=== PATIENT | female | born 1990 | race Caucasian/White ===

== ENCOUNTER → 2017-12-20 | Outpatient (CLI) | payer SELFPAY ==
[~2017-12-20] MED LIST: ALBU90I INH; ALBU90OI INH; AMOX500 PO; CYCL10 PO; DICL75ER PO; HYDACE5 PO; IBUP200 PO; IBUP800 PO; METF500C PO; OMEP40CA12 PO; OXYACE5T PO; PROM25 PO; RXTRAM50 PO; SERT100 PO; TRAM50 PO; Zofran4 MG PO; Zoloft100 MG PO; [UNRECOGNIZED DRUG - OTHER]; [UNRECOGNIZED DRUG - OTHER] PO
== END | disposition home or self-care (01) ==
LOC: LAB EV 10:07
DX: N39.0 Urinary tract infection, site not specified (principal)
CPT/HCPCS: 87086

== ENCOUNTER 2018-02-12 17:40 | Emergency (ER) | payer SELFPAY ==
[~2018-02-12] VITALS: Ht 175.3 cm; Wt 162.8 kg
[2018-02-12] MEDS ORDERED: IBUP800 PO (19:55)
== END 2018-02-12 20:56 | disposition home or self-care (01) ==
LOC: ER 17:40
DX: N76.4 Abscess of vulva (principal); Z79.84 Long term (current) use of oral hypoglycemic drugs; Z79.899 Other long term (current) drug therapy; E66.01 Morbid (severe) obesity due to excess calories
CPT/HCPCS: 56405; 99283

== ENCOUNTER → 2018-11-19 | Outpatient (CLI) | payer SELFPAY | END | disposition home or self-care (01) | LOC: LAB SHORT 16:24 → LAB EV 16:24 | DX: R73.09 Other abnormal glucose (principal) | CPT/HCPCS: 83036 ==

== ENCOUNTER 2019-03-22 20:27 | Emergency (ER) | payer MEDICAID ==
[~2019-03-22] VITALS: Ht 175.3 cm; Wt 170.1 kg
[2019-03-22] MEDS ORDERED: Bactrim Ds Tab1 EACH PO (21:14)
== END 2019-03-22 21:30 | disposition home or self-care (01) ==
LOC: ER 20:27
DX: L02.215 Cutaneous abscess of perineum (principal); Z88.1 Allergy status to other antibiotic agents; Z79.899 Other long term (current) drug therapy; Z79.84 Long term (current) use of oral hypoglycemic drugs
CPT/HCPCS: 56405; 99282-25; A9270-GY

== ENCOUNTER 2019-03-28 17:37 | Inpatient (IN) | payer MEDICAID ==
[~2019-03-28] VITALS: Ht 175.3 cm; Wt 163.0 kg
[~2019-03-28 17:37] MED LIST changes: +Bactrim Ds Tab1 EACH PO
[2019-03-28 18:22] LABS: BASOPHILS ABSOLUTE AUTO 0.03 K/mm3 (0.00-0.23); BASOPHILS PERCENT AUTO 0 % (0-2); EOSINOPHILS ABSOLUTE AUTO 0.15 K/mm3 (0.00-0.68); EOSINOPHILS PERCENT AUTO 2 % (0-6); Hematocrit 44.9 % (33.0-51.0); Hemoglobin 14.7 g/dL (11.5-16.0); IMMATURE GRAN ABSOLUTE AUTO 0.05 K/mm3 (0.00-0.10); IMMATURE GRAN PERCENT AUTO 1 % (0-1); LYMPHOCYTES ABSOLUTE AUTO 2.47 K/mm3 (0.84-5.20); LYMPHOCYTES PERCENT AUTO 25 % (21-46); MONOCYTES PERCENT AUTO 6 % (4-13); Mean Corpuscular HGB 28.3 pg (26.0-34.0); Mean Corpuscular HGB Conc 32.7 g/dL (31.5-36.5); Mean Corpuscular Volume 87 fL (80-100); Mean Platelet Volume 9.9 fL (9.1-12.4); NEUTROPHILS ABSOLUTE AUTO 6.59 K/mm3 (1.96-9.15); NEUTROPHILS PERCENT AUTO 67 % (41-73); Platelet Count 284 K/mm3 (150-400); RDW Coefficient Variation 12.7 % (11.7-14.2); RDW Standard Deviation 40.2 fL (35.1-46.3); Red Blood Cell Count 5.19 M/mm3 (3.80-5.20); White Blood Cell Count 9.89 K/mm3 (4.00-11.30)
[2019-03-28 18:39] LABS: Alanine Aminotransfer (ALT/SGP 175 U/L (12-78); Albumin, Blood 3.7 g/dL (3.4-5.0); Albumin/Globulin Ratio 0.7 (0.8-1.8); Alk Phos 128 U/L (50-136); Anion Gap 8 mmol/L (6-16); Aspartate Aminotrans (AST/SGOT 160 U/L (12-37); Bilirubin, Total 0.4 mg/dL (0.1-1.0); Blood Urea Nitrogen 10 mg/dL (8-24); Bun/Creatinine Ratio 19.2 (12.0-20.0); CO2, Blood 25 mmol/L (21-32); Calcium, Blood 9.5 mg/dL (8.5-10.1); Chloride, Blood 99 mmol/L (98-108); Creatinine, Blood 0.52 mg/dL (0.40-1.00); Glomerular Filtration Rate >60 (60-); Glucose, Blood 331 mg/dL (70-99); Potassium, Blood 4.3 mmol/L (3.5-5.5); Sodium, Blood 132 mmol/L (136-145); Total Protein, Blood 8.7 g/dL (6.4-8.2)
[2019-03-29] MEDS ORDERED: CEPH500 PO (01:38)
[2019-03-29] MEDS ORDERED: Bactrim Ds Tab1 EACH PO (01:41)
--- NOTE | 2019-03-29 04:55 | NUR ---
Shift summary: Pt admitted to medical at midnight last pm. Admission completed. See nursing assessment. No c/o pain at present. pt npo since midnight for possible surgery in am. DR lima Higgins answering service called for a consult for this patient. Pt on telemetry- sinus tach at 118 per monitoring tech
[2019-03-29 05:25] LABS: Hematocrit 39.9 % (33.0-51.0); Hemoglobin 12.8 g/dL (11.5-16.0); Mean Corpuscular HGB Conc 32.1 g/dL (31.5-36.5); Mean Corpuscular Volume 87 fL (80-100); Mean Platelet Volume 9.9 fL (9.1-12.4); Platelet Count 242 K/mm3 (150-400); RDW Standard Deviation 40.6 fL (35.1-46.3); Red Blood Cell Count 4.57 M/mm3 (3.80-5.20); White Blood Cell Count 9.15 K/mm3 (4.00-11.30)
[2019-03-29 05:55] LABS: Alanine Aminotransfer (ALT/SGP 140 U/L (12-78); Albumin, Blood 3.2 g/dL (3.4-5.0); Albumin/Globulin Ratio 0.8 (0.8-1.8); Alk Phos 96 U/L (50-136); Anion Gap 9 mmol/L (6-16); Aspartate Aminotrans (AST/SGOT 111 U/L (12-37); Bilirubin, Total 0.5 mg/dL (0.1-1.0); Blood Urea Nitrogen 13 mg/dL (8-24); Bun/Creatinine Ratio 24.2 (12.0-20.0); CO2, Blood 24 mmol/L (21-32); Calcium, Blood 9.5 mg/dL (8.5-10.1); Chloride, Blood 104 mmol/L (98-108); Creatinine, Blood 0.54 mg/dL (0.40-1.00); Globulin, Blood 4.2 g/dL (2.2-4.0); Glomerular Filtration Rate >60 (60-); Glucose, Blood 297 mg/dL (70-99); Sodium, Blood 137 mmol/L (136-145); Total Protein, Blood 7.4 g/dL (6.4-8.2)
--- NOTE | 2019-03-29 16:33 | NUR ---
SHIFT SUMMARY PT AXO, PLEASANT AND COOPERATIVE WITH CARE. COMPLAINS OF PAIN 8/10, MEDICATED PER EMAR WITH GOOD EFFECT. TELECOMMUNICATIONS SPECIALIST DR BILLINGSLEY CONSULTED, COMPLETED EXTENSIVE DIABETIC EDUCATION, SEE NOTE. PT COMPLAINED OF HEADACHE WITH LIGHT SENSITIVITY, DR MOONEY AWARE, PT MEDICATED PER EMAR. DR BILLINGSLEY INSTRUCTED NURSE TO CALL IF ABCESS IS WORSE. DR BILLINGSLEY'S PHONE NUMBER IS [phone]. IV PATENT AND INFUSING AT THIS TIME. PT UP WITH SBA TO HELP HER MANAGE LINES AND TUBES. BED IN LOW POSITION, CALL LIGHT WITHIN REACH. NURSE WILL ANTONELLA BORDER OF ABCESS.
--- NOTE | 2019-03-30 03:40 | NUR ---
Shift summary: Pt has done well overnight with no c/o pain. Pt tolerating antibiotics well. Minimal drainage from abcess noted. Pt able to sleep most of night. Friend at bedside. No anxiety issues noted. Pt remains npo tonight for possible surgery today/
[2019-03-30 15:15] LABS: BASOPHILS ABSOLUTE AUTO 0.02 K/mm3 (0.00-0.23); BASOPHILS PERCENT AUTO 0 % (0-2); EOSINOPHILS ABSOLUTE AUTO 0.16 K/mm3 (0.00-0.68); EOSINOPHILS PERCENT AUTO 2 % (0-6); Hematocrit 39.5 % (33.0-51.0); Hemoglobin 12.7 g/dL (11.5-16.0); IMMATURE GRAN ABSOLUTE AUTO 0.03 K/mm3 (0.00-0.10); IMMATURE GRAN PERCENT AUTO 0 % (0-1); LYMPHOCYTES ABSOLUTE AUTO 1.55 K/mm3 (0.84-5.20); LYMPHOCYTES PERCENT AUTO 22 % (21-46); MONOCYTES ABSOLUTE AUTO 0.49 K/mm3 (0.16-1.47); MONOCYTES PERCENT AUTO 7 % (4-13); Mean Corpuscular HGB 28.6 pg (26.0-34.0); Mean Corpuscular HGB Conc 32.2 g/dL (31.5-36.5); Mean Corpuscular Volume 89 fL (80-100); Mean Platelet Volume 9.7 fL (9.1-12.4); NEUTROPHILS ABSOLUTE AUTO 4.89 K/mm3 (1.96-9.15); NEUTROPHILS PERCENT AUTO 69 % (41-73); Platelet Count 246 K/mm3 (150-400); RDW Coefficient Variation 12.7 % (11.7-14.2); RDW Standard Deviation 41.4 fL (35.1-46.3); Red Blood Cell Count 4.44 M/mm3 (3.80-5.20); White Blood Cell Count 7.14 K/mm3 (4.00-11.30)
--- NOTE | 2019-03-30 18:41 | NUR ---
SHIFT SUMMARY- PT HAS SHOWN IMPROVEMENT TODAY POSSIBILITY OF DISCHARGE TOMORROW BASED ON DR BILLINGSLEY ASSESSMENT TODAY, IF PT CONTINUES ON CURRENT TREND OF IMPROVEMENT. PT ALERT, ORIENTED AND INDEPENDENT IN THE ROOM. NO CURRENT C/O PAIN. NO S&S OF DISTRESS NOTED AT THIS TIME. TELE WAS DC'D TODAY, IV IS SL WITH THE EXCEPTION OF IV ABX. PT SITTING AT THE EOB WITH HER CALL LIGHT IN REACH, CALLS APPROPRIATELY.
[2019-03-31 05:27] LABS: BASOPHILS ABSOLUTE AUTO 0.03 K/mm3 (0.00-0.23); BASOPHILS PERCENT AUTO 0 % (0-2); EOSINOPHILS ABSOLUTE AUTO 0.27 K/mm3 (0.00-0.68); EOSINOPHILS PERCENT AUTO 4 % (0-6); Hematocrit 38.7 % (33.0-51.0); Hemoglobin 12.3 g/dL (11.5-16.0); IMMATURE GRAN ABSOLUTE AUTO 0.03 K/mm3 (0.00-0.10); IMMATURE GRAN PERCENT AUTO 0 % (0-1); LYMPHOCYTES ABSOLUTE AUTO 2.11 K/mm3 (0.84-5.20); LYMPHOCYTES PERCENT AUTO 29 % (21-46); MONOCYTES ABSOLUTE AUTO 0.71 K/mm3 (0.16-1.47); MONOCYTES PERCENT AUTO 10 % (4-13); Mean Corpuscular HGB Conc 31.8 g/dL (31.5-36.5); Mean Corpuscular Volume 88 fL (80-100); Mean Platelet Volume 9.7 fL (9.1-12.4); NEUTROPHILS ABSOLUTE AUTO 4.12 K/mm3 (1.96-9.15); NEUTROPHILS PERCENT AUTO 57 % (41-73); Platelet Count 240 K/mm3 (150-400); RDW Coefficient Variation 12.7 % (11.7-14.2); RDW Standard Deviation 41.2 fL (35.1-46.3); Red Blood Cell Count 4.39 M/mm3 (3.80-5.20); White Blood Cell Count 7.27 K/mm3 (4.00-11.30)
--- NOTE | 2019-03-31 07:13 | NUR ---
ASSUMED CARE: PT RESTING QUIETLY IN BED AT THIS TIME. NO ACUTE NEEDS OR CONCERNS NOTED.
--- NOTE | 2019-03-31 09:11 | NUR ---
PT REQUESTING TO SPEAK WITH SOMEONE ABOUT HER QUALIFICATIONS FOR [employer]HP OR INSURANCE COVERAGE. CALL TO CARE MANAGEMENT WHO STATES THEY WILL FOLLOW UP
[2019-03-31] MEDS ORDERED: INSULANPEN SC (10:52)
[2019-03-31] MEDS ORDERED: METR500 PO (10:53)
--- NOTE | 2019-03-31 12:59 | NUR ---
IV DC'D WNL. PT DC'D HOME, INSTRUCTIONS GIVEN AND PT DENIED FURTHER QUESTIONS. PT AMBULATORY UPON DISCHARGE. NO FURTHER NEEDS OR CONCERNS
== END 2019-03-31 13:00 | disposition home or self-care (01) | DRG 872 ==
LOC: ER 17:37 → MEDS 22:49 → SURS 22:49 → MEDS 23:32 → ENPENDDIS 03-31 10:31 → MEDS 03-31 13:00
PROVIDERS: Emergency Medicine; Obstetrics & Gynecology; ADMIT Internal Medicine
DX: A41.9 Sepsis, unspecified organism (principal); N76.4 Abscess of vulva; Z68.43 Body mass index [BMI] 50.0-59.9, adult; R65.20 Severe sepsis without septic shock; M41.9 Scoliosis, unspecified; M51.36 Other intervertebral disc degeneration, lumbar region; Z79.4 Long term (current) use of insulin; E66.01 Morbid (severe) obesity due to excess calories; E11.65 Type 2 diabetes mellitus with hyperglycemia; B95.2 Enterococcus as the cause of diseases classified elsewhere
CPT/HCPCS: 36415; 56405; 72193; 76830; 76856; 80053; 82947; 83036; 83605; 84703; 85025; 85027; 86304; 87070; 87075; 87077; 87186; 87205; 96365-59; 96375-59; 99284-25; J0696; J1170; J1650; J1885; J2060; J2250; J2405; J2543; J3010; J3370; J7030; J7050; Q9967

== ENCOUNTER → 2019-04-21 | Outpatient (CLI) | payer OTHER ==
[~2019-04-21] MED LIST changes: +BASAGLAR K100 UNIT/1; +CEPH500 PO; +INSULANPEN SC; +LISI20; +METFORMIN HCL1000 M1 PO; +METR500 PO; +SERT25
[2019-04-21 18:46] LABS: Microalb/Creat Ratio UR, Rand 26.312 mg/g (0.000-30.000); Microalbumin, Random Urine 32.1 mg/L (0.000-20.000)
== END | disposition home or self-care (01) ==
LOC: LAB SHORT 16:37 → LAB 16:37
PROVIDERS: Nurse Practitioner Family
DX: E11.9 Type 2 diabetes mellitus without complications (principal)
CPT/HCPCS: 82043; 82570

== ENCOUNTER → 2019-05-18 | Outpatient (CLI) | payer OTHER | END | disposition home or self-care (01) | LOC: LAB SHORT 15:06 → LAB 15:06 | DX: D18.01 Hemangioma of skin and subcutaneous tissue (principal) | CPT/HCPCS: 88305 ==

== ENCOUNTER 2019-07-14 22:46 | Emergency (ER) | payer OTHER ==
[~2019-07-14] VITALS: Ht 175.3 cm; Wt 163.3 kg
[~2019-07-14 22:46] MED LIST changes: -BASAGLAR K100 UNIT/1; -LISI20; -METFORMIN HCL1000 M1 PO; -SERT25
[2019-07-14] MEDS ORDERED: LISI20 (22:59)
[2019-07-14] MEDS ORDERED: BASAGLAR K100 UNIT/1 (23:00)
[2019-07-14] MEDS ORDERED: SERT25 (23:00)
[2019-07-14] MEDS ORDERED: METFORMIN HCL1000 M1 PO (23:00)
== END 2019-07-15 00:17 | disposition home or self-care (01) ==
LOC: ER 22:46
DX: J02.0 Streptococcal pharyngitis (principal); E11.9 Type 2 diabetes mellitus without complications; M41.9 Scoliosis, unspecified; Z88.1 Allergy status to other antibiotic agents; Z79.899 Other long term (current) drug therapy
CPT/HCPCS: 96372; 99282-25; J0561; J1100

== ENCOUNTER → 2019-07-17 | Outpatient (CLI) | payer OTHER ==
[~2019-07-17] MED LIST changes: +BASAGLAR K100 UNIT/1; +LISI20; +METFORMIN HCL1000 M1 PO; +SERT25
== END | disposition home or self-care (01) ==
LOC: LAB 10:53 → LAB SHORT 10:53
PROVIDERS: Obstetrics & Gynecology
DX: Z12.4 Encounter for screening for malignant neoplasm of cervix (principal)
CPT/HCPCS: G0123

== ENCOUNTER → 2019-09-17 | Outpatient (CLI) | payer OTHER ==
[~2019-09-17] MED LIST changes: -BASAGLAR K100 UNIT/1; +BASAGLAR K100 UNIT/1 SC; -SERT25; +SERT25 PO
== END | disposition home or self-care (01) ==
LOC: LAB 14:55 → LAB SHORT 14:55
DX: N83.292 Other ovarian cyst, left side (principal)
CPT/HCPCS: 86304

== ENCOUNTER 2021-05-24 08:26 | Emergency (ER) | payer OTHER | END 2021-05-24 12:23 | disposition home or self-care (01) | LOC: ER 08:26 | DX: N83.202 Unspecified ovarian cyst, left side (principal); K59.00 Constipation, unspecified; E11.65 Type 2 diabetes mellitus with hyperglycemia; E11.10 Type 2 diabetes mellitus with ketoacidosis without coma; Z88.1 Allergy status to other antibiotic agents ==

== ENCOUNTER 2021-10-05 06:01 | Inpatient (IN) | payer OTHER ==
[~2021-10-05] VITALS: Ht 175 cm; Wt 157.3 kg
[~2021-10-05 06:01] MED LIST changes: +BISA10S PR; +CITRATE OF MAG296 M4 PO; +DOC250 PO; +MOTRIN IB200 MG PO
[2021-10-05] MEDS ORDERED: GLIP5 PO (06:35)
[2021-10-05] MEDS ORDERED: METF500C PO (06:35)
[2021-10-05] MEDS ORDERED: INSULANI SC (06:36)
[2021-10-05] MEDS ORDERED: ATOR20 PO (06:36)
--- NOTE | 2021-10-05 07:25 | NUR ---
History, Chart, Medications and Allergies reviewed before start of procedure.Patient confirms NPO status and agrees with scheduled surgery. Patient reports completing Chlorhexadine shower X2 prior to admission to hospital.Surgical site prepped with 2% Chlorhexidine cloth wipe.
--- NOTE | 2021-10-05 07:55 | NUR ---
RECIEVED PATIENT FROM [facility] AT 0735 AND RECIEVED REPORT . OR STAFF AT BEDSIDE AND PATIENT TAKEN TO OR AFTER MEDICATION GIVEN ORDERERED BY ANNESTHESIOLOGIST.
--- NOTE | 2021-10-05 08:24 | NUR ---
10/05/21 0824 Zan Barker SMALL ROUND REDDENED ELEVATED SKIN AREA NOTED NEAR UPPER ABDOMEN, AWARE NO NEW ORDERS
[2021-10-05 11:39] LABS: BASOPHILS ABSOLUTE AUTO 0.03 K/mm3 (0.00-0.23); BASOPHILS PERCENT AUTO 0 % (0-2); EOSINOPHILS ABSOLUTE AUTO 0.07 K/mm3 (0.00-0.68); EOSINOPHILS PERCENT AUTO 1 % (0-6); Hemoglobin 12.9 g/dL (11.5-16.0); IMMATURE GRAN ABSOLUTE AUTO 0.08 K/mm3 (0.00-0.10); IMMATURE GRAN PERCENT AUTO 1 % (0-1); LYMPHOCYTES ABSOLUTE AUTO 1.57 K/mm3 (0.84-5.20); LYMPHOCYTES PERCENT AUTO 11 % (21-46); MONOCYTES ABSOLUTE AUTO 0.47 K/mm3 (0.16-1.47); MONOCYTES PERCENT AUTO 3 % (4-13); Mean Corpuscular HGB 29.4 pg (26.0-34.0); Mean Corpuscular HGB Conc 33.1 g/dL (31.5-36.5); Mean Corpuscular Volume 89 fL (80-100); Mean Platelet Volume 9.7 fL (9.1-12.4); NEUTROPHILS ABSOLUTE AUTO 11.87 K/mm3 (1.96-9.15); NEUTROPHILS PERCENT AUTO 84 % (41-73); Platelet Count 230 K/mm3 (150-400); RDW Coefficient Variation 12.4 % (11.7-14.2); RDW Standard Deviation 40.4 fL (35.1-46.3); Red Blood Cell Count 4.39 M/mm3 (3.80-5.20); White Blood Cell Count 14.09 K/mm3 (4.00-11.30)
--- NOTE | 2021-10-05 18:29 | NUR ---
SHIFT SUMMARY PT IS POD#0. PAIN WAS MANAGED WITH DRY CLEANING ATTENDANT AFTER SURGERY. PT HAS TRANSITIONED OFF OF DRY CLEANING ATTENDANT AND IS NOW TAKING PO PAIN MEDICATION AND TORADOL TO MANAGE PAIN. PT IS ALERT AND ORIENTED. SHE HAS BEEN ABLE TO AMBULATE AND TOLERATED PO THIS AFTERNOON. CHELA DRESSING IN PLACE TO SCANT LOWER ABD DRESSING, SCANT RED DRAINAGE. VSS. WILL MONITOR UNTIL REPORT TO CECILIA RN.
--- NOTE | 2021-10-05 21:52 | NUR ---
2100 BS 260, NOTIFIED DR. BILLINGSLEY, RECEIVED NO FURTHER ORDERS, WILL CONTINUE TO FOLLOW SLIDING SCALE.
[2021-10-06 04:52] LABS: BASOPHILS ABSOLUTE AUTO 0.01 K/mm3 (0.00-0.23); BASOPHILS PERCENT AUTO 0 % (0-2); EOSINOPHILS ABSOLUTE AUTO 0.01 K/mm3 (0.00-0.68); EOSINOPHILS PERCENT AUTO 0 % (0-6); Hematocrit 36.5 % (33.0-51.0); IMMATURE GRAN ABSOLUTE AUTO 0.06 K/mm3 (0.00-0.10); IMMATURE GRAN PERCENT AUTO 0 % (0-1); LYMPHOCYTES ABSOLUTE AUTO 2.16 K/mm3 (0.84-5.20); LYMPHOCYTES PERCENT AUTO 15 % (21-46); MONOCYTES ABSOLUTE AUTO 1.26 K/mm3 (0.16-1.47); MONOCYTES PERCENT AUTO 9 % (4-13); Mean Corpuscular HGB Conc 32.9 g/dL (31.5-36.5); Mean Corpuscular Volume 88 fL (80-100); Mean Platelet Volume 9.9 fL (9.1-12.4); NEUTROPHILS ABSOLUTE AUTO 10.73 K/mm3 (1.96-9.15); NEUTROPHILS PERCENT AUTO 75 % (41-73); Platelet Count 269 K/mm3 (150-400); RDW Coefficient Variation 12.3 % (11.7-14.2); RDW Standard Deviation 39.7 fL (35.1-46.3); Red Blood Cell Count 4.14 M/mm3 (3.80-5.20); White Blood Cell Count 14.23 K/mm3 (4.00-11.30)
--- NOTE | 2021-10-06 05:59 | NUR ---
Alert and oriented x's 4. Verbalized mild discomofort, medicated with scheduled Toradol, effective relief. Slept well through night. CHELA dressing clean clean dry and intact. Melvin catheter discontinued at 0541,tolerated well, will continue to monitor. Patient able to ambulate with supervision. Saftey maintained, call carrero in reach.
[2021-10-06] MEDS ORDERED: Percocet 5-3251 EACH PO (09:42)
[2021-10-06] MEDS ORDERED: MOTRIN IB200 MG PO (09:43)
--- NOTE | 2021-10-06 12:29 | NUR ---
PATIENT HAS BEEN ABLE TO URINATE WELL HAVE MORE FLATUS.
--- NOTE | 2021-10-06 16:26 | NUR ---
DISCHARGE NOTE: PATIENT AND PATIENTS PARENTS WERE EDUCATED ON DISCHARGE INSTRUCTIONS. ALL THREE OF THEM VERBALIZED UNDERSTANDING OF INSTRUCTIONS. PATIENTS DAD ALREADY FILLED OUT THE HARD PERSCRIPTIONS. PATIENTS CHELA IS C/D/I ON HER ABD. ABD BINDER WAS TIGHTENED WELL. SHE IS ALERT AND ORIENTED X4. VS ARE WNL AND IS ON RA. PAIN IS MANAGED WITH PO PAIN MEDS. SHE IS AMBULATING IN THE ROOM AND HALLWAYS. PATIENT IS TOLERATING PO INTAKE AND IS VOIDING WELL PASSING FLATUS. SHE IS DRESSED AND HAS HER PERSONAL ITEMS IN BAGS. IV WAS TAKEN OUT AND WNL. SHE IS BEING WHEELCHAIRED OUT TO HER FATHERS CAR TO TAKE HER HOME. SHE ALREADY SCHEDULED HER FOLLOW UP APPOINTMENT NEXT WEEK.
== END 2021-10-06 16:25 | disposition home or self-care (01) | DRG 742 ==
LOC: SURS 06:01 → PRE IP 07:30 → SURS 10:40
PROVIDERS: ADMIT Obstetrics & Gynecology
PROC: 0UT10ZZ Resection of Left Ovary, Open Approach (ICD-10-PCS; principal; 2021-10-05 07:30)
PROC: 0UB60ZZ Excision of Left Fallopian Tube, Open Approach (ICD-10-PCS; 2021-10-05 07:30)
DX: N83.202 Unspecified ovarian cyst, left side (principal); Z68.43 Body mass index [BMI] 50.0-59.9, adult; E66.01 Morbid (severe) obesity due to excess calories; I10 Essential (primary) hypertension; E11.9 Type 2 diabetes mellitus without complications; E78.5 Hyperlipidemia, unspecified; F32.A Depression, unspecified; F41.9 Anxiety disorder, unspecified; Z79.4 Long term (current) use of insulin; Z79.899 Other long term (current) drug therapy
CPT/HCPCS: 36415; 82947; 85025; 88305; A9270; J0171; J0690; J0694; J1100; J1815; J1885; J2250; J2405; J2704; J3010; J7120

== ENCOUNTER 2021-12-27 00:08 | Day surgery (SDC) | payer OTHER ==
[~2021-12-27 00:08] MED LIST changes: +ATOR20 PO; +GLIP5 PO; +INSULANI SC; +Percocet 5-3251 EACH PO
== END 2021-12-27 22:45 | disposition home or self-care (01) ==
LOC: WOUND 00:08
DX: T81.31XA Disruption of external operation (surgical) wound, not elsewhere classified, initial encounter (principal); E78.5 Hyperlipidemia, unspecified; E11.9 Type 2 diabetes mellitus without complications; E66.9 Obesity, unspecified; Z79.4 Long term (current) use of insulin; Z68.42 Body mass index [BMI] 45.0-49.9, adult
CPT/HCPCS: G0463

== ENCOUNTER 2022-01-03 01:45 | Day surgery (SDC) | payer OTHER | END 2022-01-03 23:17 | disposition home or self-care (01) | LOC: WOUND | DX: T81.31XD Disruption of external operation (surgical) wound, not elsewhere classified, subsequent encounter (principal); S31.109D Unspecified open wound of abdominal wall, unspecified quadrant without penetration into peritoneal cavity, subsequent encounter; E11.622 Type 2 diabetes mellitus with other skin ulcer; E78.5 Hyperlipidemia, unspecified; E66.9 Obesity, unspecified; Z90.721 Acquired absence of ovaries, unilateral; Z68.42 Body mass index [BMI] 45.0-49.9, adult | CPT/HCPCS: A9270; G0463 ==

== ENCOUNTER 2022-01-17 00:43 | Day surgery (SDC) | payer OTHER | END 2022-01-17 23:10 | disposition home or self-care (01) | LOC: WOUND 00:43 | DX: T81.31XD Disruption of external operation (surgical) wound, not elsewhere classified, subsequent encounter (principal); S31.109A Unspecified open wound of abdominal wall, unspecified quadrant without penetration into peritoneal cavity, initial encounter; X58.XXXA Exposure to other specified factors, initial encounter; E11.622 Type 2 diabetes mellitus with other skin ulcer | CPT/HCPCS: G0463 ==

== ENCOUNTER → 2022-03-28 | Outpatient (CLI) | payer OTHER | END | disposition home or self-care (01) | LOC: LAB SHORT 16:08 → LAB 16:08 | DX: N89.8 Other specified noninflammatory disorders of vagina (principal) | CPT/HCPCS: 87070; 87205 ==